=== PATIENT | male | born 1965 | race Caucasian/White ===

== ENCOUNTER 2023-05-20 10:54 | Inpatient (IN) | payer BC ==
[2023-05-20] MEDS ORDERED: Sodium Chloride 0.9% 100 ML IV SCH (11:15)
[2023-05-20] MEDS ORDERED: Sodium Chloride 0.9% 10 ML Syringe FLUSH PRN (11:15)
[2023-05-20] MEDS: Iopamidol 755 Mg/ML 100 ML Bottle IVPUSH ONE (11:19)
[2023-05-20 11:58] LABS: BASOPHILS ABSOLUTE AUTO 0.1 K/mm3 (0.0-0.2); BASOPHILS PERCENT AUTO 1.4 % (0.0-1.0); EOSINOPHILS ABSOLUTE AUTO 0.2 K/mm3 (0.0-0.4); EOSINOPHILS PERCENT AUTO 2.4 % (0.0-6.0); HEMATOCRIT 44.3 % (42.0-52.0); HEMOGLOBIN 15.9 gm/dl (14.0-18.0); IMMATURE GRAN ABSOLUTE AUTO 0.03 K/mm3 (0.00-0.05); IMMATURE GRAN PERCENT AUTO 0.4 % (0.0-0.4); LYMPHOCYTES ABSOLUTE AUTO 1.1 K/mm3 (1.0-4.8); LYMPHOCYTES PERCENT AUTO 15.5 % (24.0-44.0); MEAN CORPUSCULAR HEMOGLOBIN 35.7 pg (28.0-32.0); MEAN CORPUSCULAR HGB CONC 35.9 g/dl (32.0-36.0); MEAN CORPUSCULAR VOLUME 99.3 fl (83.0-99.0); MEAN PLATELET VOLUME 8.4 fl (9.4-12.4); MONOCYTES ABSOLUTE AUTO 0.4 K/mm3 (0.0-0.8); MONOCYTES PERCENT AUTO 5.6 % (0.0-8.0); NEUTROPHILS ABSOLUTE AUTO 5.2 K/mm3 (1.8-7.7); NEUTROPHILS PERCENT AUTO 74.7 % (41.0-71.0); PLATELET COUNT,PLT 114 K/mm3 (150-400); RED BLOOD CELL COUNT 4.46 M/mm3 (4.52-5.90); WHITE BLOOD CELL COUNT,WBC 6.98 K/mm3 (3.9-11.3)
[2023-05-20 12:02] LABS: A/G RATIO 1.1 (1-2); ALANINE AMINOTRANSFERASE,ALT 60 U/L (16-63); ALBUMIN 4.3 g/dl (3.4-5.0); ALKALINE PHOSPHATASE 108 U/L (46-116); ANION GAP 15.1 (5-15); ASPARTATE AMNIOTRANSFERASE,AST 73 U/L (15-37); BILIRUBIN TOTAL 1.3 mg/dL (0.2-1.0); BLOOD UREA NITROGEN,BUN 10 mg/dL (7-18); BUN/CREATININE RATIO 6.7 (14-18); CALCIUM 9.8 mg/dL (8.5-10.1); CARBON DIOXIDE,CO2 29 mEq/L (21-32); CHLORIDE,CL 96 mEq/L (98-107); CREATININE 1.5 mg/dL (0.7-1.3); ESTIMATED GFR 54 mL/min (>60); GLUCOSE RANDOM 132 mg/dL (70-99); POTASSIUM,K 4.1 mEq/L (3.5-5.1); PROTEIN TOTAL,TP 8.2 g/dl (6.4-8.2); SODIUM,NA 136 mEq/L (136-145); TROPONIN I HIGH SENSITIVITY 5 pg/mL (<=76)
[2023-05-20 12:05] LABS: INR 1.16; PROTHROMBIN TIME 12.3 SECONDS (9.7-12.0)
[2023-05-20 12:07] LABS: PTT,PARTIAL THROMBOPLSTIN TIME 28.7 SECONDS (21.7-31.4)
[2023-05-20] MEDS ORDERED: Docusate Sodium 100 MG Cap PO PRN (13:57)
[2023-05-20] MEDS ORDERED: Ondansetron 4 MG/2 ML SDV IV PRN (13:57)
[2023-05-20] MEDS ORDERED: Acetaminophen 325 MG Tab PO PRN (13:57)
[2023-05-20 14:24] LABS: HEMOGLOBIN A1C 5.7 %
[2023-05-20] MEDS: Aspirin 81 MG Tab.Chew PO ONE ×2 (17:21→17:22)
[2023-05-20] MEDS: Clopidogrel 75 MG Tab PO SCH (17:22)
[2023-05-20] MEDS: atorvaSTATin 40 MG Tab PO SCH (20:52)
[2023-05-21 05:36] LABS: ALBUMIN 3.7 g/dl (3.4-5.0); ANION GAP 13.2 (5-15); BILIRUBIN TOTAL 1.5 mg/dL (0.2-1.0); BUN/CREATININE RATIO 8.5 (14-18); CALCIUM 9.4 mg/dL (8.5-10.1); CREATININE 1.3 mg/dL (0.7-1.3); EST CRCL DRUG DOSING (CG) 63.95 mL/min; MAGNESIUM 1.6 mg/dL (1.8-2.4); POTASSIUM,K 3.2 mEq/L (3.5-5.1); PROTEIN TOTAL,TP 7.3 g/dl (6.4-8.2)
[2023-05-21 05:43] LABS: BASOPHILS ABSOLUTE AUTO 0.1 K/mm3 (0.0-0.2); BASOPHILS PERCENT AUTO 1.6 % (0.0-1.0); EOSINOPHILS ABSOLUTE AUTO 0.3 K/mm3 (0.0-0.4); HEMOGLOBIN 15.1 gm/dl (14.0-18.0); IMMATURE GRAN ABSOLUTE AUTO 0.03 K/mm3 (0.00-0.05); IMMATURE GRAN PERCENT AUTO 0.4 % (0.0-0.4); LYMPHOCYTES ABSOLUTE AUTO 1.5 K/mm3 (1.0-4.8); LYMPHOCYTES PERCENT AUTO 20.4 % (24.0-44.0); MEAN CORPUSCULAR HEMOGLOBIN 36.6 pg (28.0-32.0); MEAN CORPUSCULAR HGB CONC 36.8 g/dl (32.0-36.0); MEAN CORPUSCULAR VOLUME 99.3 fl (83.0-99.0); MEAN PLATELET VOLUME 8.4 fl (9.4-12.4); MONOCYTES ABSOLUTE AUTO 0.6 K/mm3 (0.0-0.8); MONOCYTES PERCENT AUTO 7.3 % (0.0-8.0); NEUTROPHILS PERCENT AUTO 66.3 % (41.0-71.0); PLATELET COUNT,PLT 110 K/mm3 (150-400); RED BLOOD CELL COUNT 4.13 M/mm3 (4.52-5.90); WHITE BLOOD CELL COUNT,WBC 7.56 K/mm3 (3.9-11.3)
[2023-05-21] MEDS: Magnesium Sulfate/Water 2 GM in Premix Bag 1 BAG IV ONE (08:05)
[2023-05-21] MEDS: Potassium Chloride 20 MEQ Tab.ER PO ONE (08:08)
[2023-05-21] MEDS: Thiamine 100 MG Tab PO SCH (08:08)
[2023-05-21] MEDS: Aspirin 81 MG Tab.Chew PO SCH (08:09)
[2023-05-21] MEDS: Pantoprazole 40 MG Tab.CR PO SCH (08:09)
[2023-05-21] MEDS: Baclofen 10 MG Tab PO SCH (08:09)
== END 2023-05-21 11:31 | disposition home or self-care (01) | DRG 47 ==
LOC: JD.ED 10:54 → SUPCPDRO 10:54 → JD.MS 13:19
PROVIDERS: ADMIT Internal Medicine; ATTEND Internal Medicine
DX: G45.9 Transient cerebral ischemic attack, unspecified (principal); F10.90 Alcohol use, unspecified, uncomplicated; Z66 Do not resuscitate; I12.9 Hypertensive chronic kidney disease with stage 1 through stage 4 chronic kidney disease, or unspecified chronic kidney disease; H91.90 Unspecified hearing loss, unspecified ear; M54.2 Cervicalgia; N18.31 Chronic kidney disease, stage 3a; G89.29 Other chronic pain; M54.50 Low back pain, unspecified; F17.200 Nicotine dependence, unspecified, uncomplicated; K76.0 Fatty (change of) liver, not elsewhere classified; E87.6 Hypokalemia; E83.42 Hypomagnesemia; M21.372 Foot drop, left foot; Z79.899 Other long term (current) drug therapy; Z79.82 Long term (current) use of aspirin; Z79.02 Long term (current) use of antithrombotics/antiplatelets; Z86.718 Personal history of other venous thrombosis and embolism; Z87.820 Personal history of traumatic brain injury; Z87.39 Personal history of other diseases of the musculoskeletal system and connective tissue
CPT/HCPCS: 36415; 70450; 70450-26; 70496; 70496-26; 70498; 70498-26; 70551; 70551-26; 80053; 80061; 82947; 83036; 83735; 84484; 85025; 85610; 85730; 93005; 93307; A9270-GY; J3475; Q9967

== ENCOUNTER 2024-01-18 17:19 | Inpatient (IN) | payer BC ==
[2024-01-18 17:44] LABS: BASOPHILS ABSOLUTE AUTO 0.1 K/mm3 (0.0-0.2); BASOPHILS PERCENT AUTO 0.6 % (0.0-1.0); EOSINOPHILS PERCENT AUTO 0.3 % (0.0-6.0); HEMATOCRIT 42.6 % (42.0-52.0); HEMOGLOBIN 14.9 gm/dl (14.0-18.0); IMMATURE GRAN ABSOLUTE AUTO 0.16 K/mm3 (0.00-0.05); IMMATURE GRAN PERCENT AUTO 1.1 % (0.0-0.4); LYMPHOCYTES PERCENT AUTO 13.9 % (24.0-44.0); MEAN CORPUSCULAR HEMOGLOBIN 34.7 pg (28.0-32.0); MEAN CORPUSCULAR VOLUME 99.3 fl (83.0-99.0); MEAN PLATELET VOLUME 7.7 fl (9.4-12.4); MONOCYTES ABSOLUTE AUTO 0.6 K/mm3 (0.0-0.8); MONOCYTES PERCENT AUTO 4.3 % (0.0-8.0); NEUTROPHILS ABSOLUTE AUTO 11.2 K/mm3 (1.8-7.7); NEUTROPHILS PERCENT AUTO 79.8 % (41.0-71.0); PLATELET COUNT,PLT 136 K/mm3 (150-400); RED BLOOD CELL COUNT 4.29 M/mm3 (4.52-5.90); WHITE BLOOD CELL COUNT,WBC 14.09 K/mm3 (3.9-11.3)
[2024-01-18] MEDS ORDERED: Succinylcholine 200 MG/10 ML MDV ONE (18:00)
[2024-01-18] MEDS ORDERED: Etomidate 2 MG/ML 20 ML SDV IVPUSH ONE (18:00)
[2024-01-18] MEDS ORDERED: Midazolam 1 MG/ML 5 ML SDV ONE (18:00)
[2024-01-18 18:06] LABS: ALANINE AMINOTRANSFERASE,ALT 53 U/L (16-63); ALBUMIN 4.1 g/dl (3.4-5.0); ALKALINE PHOSPHATASE 216 U/L (46-116); ANION GAP 24.5 (5-15); ASPARTATE AMNIOTRANSFERASE,AST 43 U/L (15-37); BILIRUBIN TOTAL 0.9 mg/dL (0.2-1.0); BLOOD UREA NITROGEN,BUN 17 mg/dL (7-18); BUN/CREATININE RATIO 12.1 (14-18); CALCIUM 9.3 mg/dL (8.5-10.1); CARBON DIOXIDE,CO2 20 mEq/L (21-32); CHLORIDE,CL 94 mEq/L (98-107); CREATININE 1.4 mg/dL (0.7-1.3); ESTIMATED GFR 58 mL/min (>60); ETHANOL BLOOD MEDICAL 0.13 gm% (0.00); GLUCOSE RANDOM 137 mg/dL (70-99); POTASSIUM,K 3.5 mEq/L (3.5-5.1); PROTEIN TOTAL,TP 8.3 g/dl (6.4-8.2); SODIUM,NA 135 mEq/L (136-145); TROPONIN I HIGH SENSITIVITY 10 pg/mL (<=76)
[2024-01-18 18:28] LABS: INR 1.13; PROTHROMBIN TIME 11.9 SECONDS (9.7-12.0)
[2024-01-18 18:29] LABS: PTT,PARTIAL THROMBOPLSTIN TIME 26.1 SECONDS (21.7-31.4)
[2024-01-18 18:48] LABS: BASE EXCESS ARTERIAL -7.1 (-2-2.0); BICARBONATE,ARTERIAL 18.4 meq/L (22.0-26.0); O2 SATURATION ARTERIAL 99.1 % (96.0-97.0); PCO2 ARTERIAL 39.1 mmHg (35.0-45.0)
[2024-01-18 18:58] LABS: APPEARANCE,URINE CLEAR (Clear); BILIRUBIN,URINE NEGATIVE (Negative); COLOR,URINE YELLOW (Yellow); GLUCOSE,URINE NEGATIVE (Negative); KETONES,URINE NEGATIVE (Negative); LEUKOCYTE ESTERASE,URINE NEGATIVE (Negative); NITRITE,URINE NEGATIVE (Negative); OCCULT BLOOD,URINE 2+ (Negative); PH,URINE 5.5 (5.0-8.0); PROTEIN,URINE 3+ (Negative); UROBILINOGEN,URINE 0.2 (0.2-1.0)
[2024-01-18 19:27] LABS: BACTERIA,URINE FEW /hpf (FEW); MUCUS,URINE FEW /hpf (FEW); RBC,URINE 0-5 /hpf (0-5); SQUAMOUS EPITHELIAL CELLS,UR 0-5 /hpf (0-5); WBC,URINE 0-5 /hpf (0-5)
[2024-01-18] MEDS: levETIRAcetam 2,000 MG in Sodium Chloride 0.9% 100 ML IV ONE (20:23)
[2024-01-18] MEDS: propofoL 1,000 MG/100 ML 100 ML ONE (20:40)
[2024-01-18 20:56] LABS: BARBITURATE SCREEN,URINE NEGATIVE (CUTOFF=200); BENZODIAZEPINES SCREEN,URINE NEGATIVE (CUTOFF=150); BUPRENORPHINE SCREEN,URINE NEGATIVE (CUTOFF=10); METHADONE SCREEN, URINE NEGATIVE (CUT0FF=200); METHAMPHETAMINES SCREEN, URINE NEGATIVE (CUTOFF=500); OXYCODONE SCREEN,URINE PRESUMPTIVE POSITIVE (CUT0FF=100); THC SCREEN,URINE 20 NG/ML NEGATIVE (CUTOFF=50)
[2024-01-18 20:59] LABS: AMPHETAMINES SCREEN, URINE NEGATIVE (CUTOFF=500)
[2024-01-18] MEDS ORDERED: Ondansetron 4 MG/2 ML SDV IVPUSH PRN (21:07)
[2024-01-18] MEDS ORDERED: Acetaminophen 325 MG/10.15 ML PO PRN (21:16)
[2024-01-18] MEDS: Morphine 2 MG/ML SYRINGE IVPUSH PRN (21:40)
[2024-01-18] MEDS: LORazepam 2 MG/ML SDV IVPUSH PRN (22:32)
[2024-01-19] MEDS: Scopalamine 1mg/3day Transdermal Patch TRDERM PRN (06:15)
[2024-01-19] MEDS: Midazolam 5 MG/ML 10 ML MDV ONE (07:50)
[2024-01-19] MEDS ORDERED: levETIRAcetam 1,000 MG in Sodium Chloride 0.9% 100 ML IV SCH (08:00)
[2024-01-19] MEDS: Acetaminophen 650 MG Supp RECTAL PRN ×2 (13:03→17:41)
[2024-01-19] MEDS ORDERED: Ondansetron 4 MG Tab.DIS PO PRN (13:23)
[2024-01-19] MEDS: Morphine 10 MG/0.5 ML Oral Syringe PO PRN (16:08)
[2024-01-19] MEDS: LORazepam 1 MG Tab PO PRN (17:36)
== END 2024-01-21 00:50 | disposition expired | DRG 862 ==
LOC: JD.ED 17:19 → JD.ICU 19:44 → JD.MS 01-19 07:00
PROVIDERS: ADMIT Family Medicine; ATTEND Family Medicine
PROC: 0BH17EZ Insertion of Endotracheal Airway into Trachea, Via Natural or Artificial Opening (ICD-10-PCS; principal; 2024-01-18)
PROC: 5A1935Z Respiratory Ventilation, Less than 24 Consecutive Hours (ICD-10-PCS; 2024-01-18)
PROC: 4A033R1 Measurement of Arterial Saturation, Peripheral, Percutaneous Approach (ICD-10-PCS; 2024-01-18)
DX: Z51.5 Encounter for palliative care (principal); J96.90 Respiratory failure, unspecified, unspecified whether with hypoxia or hypercapnia; S06.5XAA Traumatic subdural hemorrhage with loss of consciousness status unknown, initial encounter; R56.9 Unspecified convulsions; S06.6XAA Traumatic subarachnoid hemorrhage with loss of consciousness status unknown, initial encounter; S02.19XA Other fracture of base of skull, initial encounter for closed fracture; S02.11HA Other fracture of occiput, left side, initial encounter for closed fracture; S02.11GA Other fracture of occiput, right side, initial encounter for closed fracture; S22.43XA Multiple fractures of ribs, bilateral, initial encounter for closed fracture; Z66 Do not resuscitate; M54.2 Cervicalgia; G89.29 Other chronic pain; I10 Essential (primary) hypertension; H91.90 Unspecified hearing loss, unspecified ear; H54.7 Unspecified visual loss; E78.5 Hyperlipidemia, unspecified; G62.9 Polyneuropathy, unspecified; Z79.899 Other long term (current) drug therapy; W19.XXXA Unspecified fall, initial encounter
CPT/HCPCS: 31500; 36415; 36600; 70450; 70450-26; 71045; 71045-26; 71260; 71260-26; 72125; 72125-26; 74177; 74177-26; 80053; 80306; 80307; 81001; 82803; 84484; 85025; 85610; 85730; 93005; 93010; 94002; 99285; A9270-GY; J0330; J1953; J2060; J2250; J2270; J2704; J3490